=== PATIENT | female | born 1995 | race Caucasian/White ===

== ENCOUNTER 2019-11-23 03:13 | Emergency (ER) | payer BC ==
[2019-11-23] MEDS ORDERED: Amoxicillin 500 MG Cap PO ONE (03:21)
[2019-11-23] MEDS ORDERED: Acetaminophen 325 MG Tab PO ONE (03:21)
[2019-11-23 03:22] VITALS: BP 119/62; PULSE 91
--- NOTE | 2019-11-23 03:26 | EDM.PDOC ---
ED HPI GENERAL MEDICAL PROBLEM - General Chief Complaint: ENT Problem Stated Complaint: EAR INFECTION Time Seen by Provider: 11/23/19 03:20 Source of Information: Reports: Patient History Limitations: Reports: No Limitations - History of Present Illness INITIAL COMMENTS - FREE TEXT/NARRATIVE: This 24 yo female patient reports to the ED with bilateral ear pain (left worse than right) along with a 1 month history of a "cold". The patient reports she woke up with intense ear pain (rates pain at a 10/10). The patient reports she is currently 7 weeks . Onset: Today Duration: Constant Location: Reports: Head Quality: Reports: Other Severity: Severe Improves with: Reports: None Worsens with: Reports: None Context: Reports: Other Associated Symptoms: Reports: No Other Symptoms Left Ear Pain Score (Numeric/FACES): 7 - Related Data Allergies Allergy/AdvReac Type Severity Reaction Status Date / Time cats Allergy Sneezing Uncoded 07/20/18 08:44 Home Meds: Home Meds Pnv No.95/Ferrous Fum/Folic AC [ Tablet] 1 each PO DAILY 02/05/16 [ History] FLUoxetine [PROzac] 20 mg PO DAILY 11/23/19 [History] Past Medical History HEENT History: Reports: Allergic Rhinitis, Impaired Vision Cardiovascular History: Reports: None Respiratory History: Reports: None Gastrointestinal History: Reports: None Genitourinary History: Reports: None 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: Musculoskeletal History: Reports: Fracture Neurological History: Reports: None Psychiatric History: Reports: Anxiety, Depression Other Psychiatric History: agoraphobia with panic attacks Endocrine/Metabolic History: Reports: None Hematologic History: Reports: None Immunologic History: Reports: None Oncologic (Cancer) History: Reports: None Dermatologic History: Reports: None - Infectious Disease History Infectious Disease History: Reports: None - Past Surgical History Head Surgeries/Procedures: Reports: None Musculoskeletal Surgical History: Reports: None Social & Family History - Family History Family Medical History: Noncontributory - Caffeine Use Caffeine Use: Reports: Soda - Living Situation & Occupation Living situation: Reports: with Significant Other, with Family ED ROS ENT - Review of Systems Review Of Systems: Comprehensive ROS is negative, except as noted in HPI. ED EXAM, ENT - Physical Exam Exam: See Below Exam Limited By: No Limitations General Appearance: Alert, WD/WN, Moderate Distress Eye Exam: Bilateral Eye: EOMI, Normal Inspection, PERRL Ears: Normal External Exam, Hearing Grossly Normal, TM Erythema (left), TM Fluid (left) Nose: Normal Inspection, Normal Mucousa, No Blood Mouth/Throat: Normal Inspection, Normal Gums, Normal Lips, Normal Oropharynx, Normal Teeth Head: Atraumatic, Normocephalic Neck: Normal Inspection, Supple, Non-Tender, Full Range of Motion Respiratory/Chest: No Respiratory Distress, Lungs Clear, Normal Breath Sounds, No Accessory Muscle Use, Chest Non-Tender Cardiovascular: Normal Peripheral Pulses, Regular Rate, Rhythm, No Edema, No Gallop, No JVD, No Murmur, No Rub GI/Abdominal: Normal Bowel Sounds, Soft, Non-Tender, No Organomegaly, No Distention, No Abnormal Bruit, No Mass (Female) Exam: Deferred Rectal (Female) Exam: Deferred Back: Normal Inspection, Full Range of Motion Extremities: Normal Inspection, Normal Range of Motion, Non-Tender, No Pedal Edema, Normal Capillary Refill Neurological: Alert, Oriented, CN II-XII Intact, Normal Cognition, Normal Gait, Normal Reflexes, No Motor/Sensory Deficits Psychiatric: Normal Affect, Normal Mood Skin: Warm, Dry, Intact, Normal Color, No Rash Lymphatic: No Adenopathy Course - Vital Signs Last Recorded V/S: Last Vital Signs Temp 35.7 C 11/23/19 03:21 Pulse 91 11/23/19 03:21 Resp 16 11/23/19 03:21 BP 119/62 11/23/19 03:21 Pulse Ox 100 11/23/19 03:21 - Orders/Labs/Meds Meds: Medications Discontinued Medications Generic Name Dose Route Start Last Admin Trade Name Naida PRN Reason Stop Dose Admin Acetaminophen 650 mg 11/23/19 03:21 Tylenol PO 11/23/19 03:22 NOW ONE Amoxicillin 1,000 mg 11/23/19 03:21 Amoxil PO 11/23/19 03:22 ONETIME ONE Departure - Departure Time of Disposition: 03:24 Disposition: Home, Self-Care 01 Condition: Fair Clinical Impression: Otitis media Qualifiers: Otitis media type: serous Chronicity: acute Laterality: left Recurrence: non- recurrent Qualified Code(s): H65.02 - Acute serous otitis media, left ear - Discharge Information *PRESCRIPTION DRUG MONITORING PROGRAM REVIEWED*: Not Applicable *COPY OF PRESCRIPTION DRUG MONITORING REPORT IN PATIENT PRABHU: Not Applicable Instructions: Otitis Media, Adult, [id number] Forms: ED Department Discharge Care Plan Goals: The patient was advised of the examination results during the visit. The patient was given an oral dose of Tylenol and Amoxicillin while in the ED and a script for Amoxicillin (1000 mg) to be given 1 by mouth 3 times per day for 7 days. The patient may take Tylenol as directed for temporary symptom relief. If the patient has any additional symptoms or concerns, the patient should visit her primary care facility or return to the emergency department. Sepsis Event Note - Evaluation Sepsis Screening Result: No Definite Risk - Focused Exam Vital Signs: Vital Signs Temp Pulse Resp BP Pulse Ox 11/23/19 03:21 35.7 C 91 16 119/62 100 Date Exam was Performed: 11/23/19 Time Exam was Performed: 03:26
== END 2019-11-23 03:30 | disposition home or self-care (01) ==
LOC: DL.ED 03:13
DX: H65.02 Acute serous otitis media, left ear (principal); F32.9 Major depressive disorder, single episode, unspecified; F41.9 Anxiety disorder, unspecified; Z91.048 Other nonmedicinal substance allergy status; Z79.899 Other long term (current) drug therapy
CPT/HCPCS: 99282; A9270

== ENCOUNTER 2019-12-31 09:13 | Emergency (ER) | payer BC ==
[2019-12-31 09:26] VITALS: BP 123/70; PULSE 87
[2019-12-31] MEDS ORDERED: Ondansetron 4 MG/2 ML SDV IVPUSH ONE (09:39)
[2019-12-31] MEDS ORDERED: Sodium Chloride 0.9% 1,000 ML IV ONE (09:39)
--- NOTE | 2019-12-31 11:10 | EDM.PDOC ---
Scribed by Jennifer Hagen 12/31/19 1043 for Brittney Paige NP ED HPI GENERAL MEDICAL PROBLEM - General Chief Complaint: Abdominal Pain Stated Complaint: POSSIBLE MISCARRIAGE Time Seen by Provider: 12/31/19 10:00 Source of Information: Reports: Patient, RN, RN Notes Reviewed History Limitations: Reports: No Limitations - History of Present Illness INITIAL COMMENTS - FREE TEXT/NARRATIVE: A 24-year-old female who presents to the ER with complaints of nausea and diarrhea x9 hours. She reports eating pizza prior to bedtime. Reports generalized abdominal ache. No vomiting episodes. Has had 4 watery bowel movements with no blood. She admits to having a headache, but states this is normal. She is 13 weeks and has been followed by Family Medicine Physician. She denies any fevers, chills, shortness of breath, chest pain, dizziness, lightheadedness at this time. Onset: Today Location: Reports: Abdomen Quality: Reports: Ache Severity: Mild Improves with: Reports: None Worsens with: Reports: None Associated Symptoms: Reports: No Other Symptoms Abdomen Pain Score (Numeric/FACES): 10 - Related Data Allergies Allergy/AdvReac Type Severity Reaction Status Date / Time cats Allergy Sneezing Uncoded 12/31/19 09:27 Home Meds: Home Meds Pnv No.95/Ferrous Fum/Folic AC [ Tablet] 1 each PO DAILY 02/05/16 [ History] FLUoxetine [PROzac] 20 mg PO DAILY 11/23/19 [History] Past Medical History HEENT History: Reports: Allergic Rhinitis, Impaired Vision Cardiovascular History: Reports: None Respiratory History: Reports: None Gastrointestinal History: Reports: None Genitourinary History: Reports: None 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: Musculoskeletal History: Reports: Fracture Other Musculoskeletal History: LEFT index finger and RIGHT ankle Neurological History: Reports: None Psychiatric History: Reports: Anxiety, Depression Other Psychiatric History: agoraphobia with panic attacks Endocrine/Metabolic History: Reports: None Hematologic History: Reports: None Immunologic History: Reports: None Oncologic (Cancer) History: Reports: None Dermatologic History: Reports: None - Infectious Disease History Infectious Disease History: Reports: None - Past Surgical History Head Surgeries/Procedures: Reports: None Cardiovascular Surgical History: Reports: None Musculoskeletal Surgical History: Reports: None Social & Family History - Family History Family Medical History: Noncontributory - Tobacco Use Smoking Status *Q: Former Smoker Years of Tobacco use: 10 Packs/Tins Daily: 0.5 Used Tobacco, but Quit: Yes Month/Year Tobacco Last Used: 09/2019 Second Hand Smoke Exposure: No - Caffeine Use Caffeine Use: Reports: Coffee - Recreational Drug Use Recreational Drug Use: No - Living Situation & Occupation Living situation: Reports: with Significant Other, with Family ED ROS GENERAL - Review of Systems Review Of Systems: Comprehensive ROS is negative, except as noted in HPI. ED EXAM, GI/ABD - Physical Exam Exam: See Below Exam Limited By: No Limitations General Appearance: Alert, WD/WN, No Apparent Distress Head: Atraumatic, Normocephalic Neck: Normal Inspection, Supple, Non-Tender, Full Range of Motion Respiratory/Chest: No Respiratory Distress, Lungs Clear, Normal Breath Sounds, No Accessory Muscle Use, Chest Non-Tender Cardiovascular: Normal Peripheral Pulses, Regular Rate, Rhythm, No Edema, No Gallop, No JVD, No Murmur, No Rub GI/Abdominal Exam: Normal Bowel Sounds, Soft, Non-Tender, No Organomegaly, No Distention, No Abnormal Bruit, No Mass, Pelvis Stable (Female) Exam: Deferred Rectal (Female) Exam: Deferred Back Exam: Normal Inspection, Full Range of Motion, NT Extremities: Normal Inspection, Normal Range of Motion, Non-Tender, Normal Capillary Refill, No Pedal Edema Neurological: Alert, Oriented, CN II-XII Intact, Normal Cognition, Normal Gait, Normal Reflexes, No Motor/Sensory Deficits Psychiatric: Normal Affect, Normal Mood Skin Exam: Warm, Dry, Intact, Normal Color, No Rash Lymphatic: No Adenopathy Course - Vital Signs Last Recorded V/S: Last Vital Signs Temp 97.6 F 12/31/19 09:20 Pulse 87 12/31/19 09:20 Resp 18 12/31/19 09:20 BP 123/70 12/31/19 09:20 Pulse Ox 99 12/31/19 09:20 - Orders/Labs/Meds Orders: Active Orders 24 hr Category Date Time Status CULTURE URINE [RM] Stat Lab 12/31/19 09:15 Received Labs: Laboratory Tests 12/31/19 12/31/19 Range/Units 09:15 09:15 Urine Color Yellow (YELLOW) Urine Appearance Slightly cloudy (CLEAR) Urine pH 5.5 (5.0-9.0) Ur Specific [place] 1.025 (1.005-1.030) Urine Protein Negative (NEGATIVE) Urine Glucose (UA) Negative (NEGATIVE) Urine Ketones Negative (NEGATIVE) Urine Occult Blood Trace-intact H (NEGATIVE) Urine Nitrite Negative (NEGATIVE) Urine Bilirubin Negative (NEGATIVE) Urine Urobilinogen 0.2 (0.2-1.0) mg/dL Ur Leukocyte Esterase Trace H (NEGATIVE) Urine RBC 0-5 /HPF Urine WBC 0-5 (0-5/HPF) /HPF Ur Epithelial Cells Many H (NOT SEEN) /HPF Urine Bacteria Many H (0-FEW/HPF) /HPF Urine HCG, Qual Positive Meds: Medications Discontinued Medications Generic Name Dose Route Start Last Admin Trade Name Freq PRN Reason Stop Dose Admin Sodium Chloride 1,000 mls @ 1,000 mls/hr 12/31/19 09:39 12/31/19 10:03 Normal Saline IV 12/31/19 10:38 1,000 mls/hr .BOLUS ONE Administration Ondansetron HCl 4 mg 12/31/19 09:39 12/31/19 10:04 Zofran IVPUSH 12/31/19 09:40 4 mg ONETIME ONE Administration - Re-Assessments/Exams Free Text/Narrative Re-Assessment/Exam: 12/31/19 10:40 Patient received IV fluids and Zofran administered with relief. Encouraged patient to start with clear liquids and advanced food as tolerated. Strongly recommended pushing fluids and resting. Follow up with PCP in the clinic. Departure - Departure Time of Disposition: 11:10 Disposition: Home, Self-Care 01 Condition: Good Clinical Impression: Gastroenteritis Qualifiers: Weeks of gestation: 13 weeks Qualified Code(s): Z3A.13 - 13 weeks gestation of - Discharge Information Instructions: Viral Gastroenteritis, Adult, [id number] Forms: ED Department Discharge Additional Instructions: Follow instructions on ADS. Sepsis Event Note - Evaluation Sepsis Screening Result: No Definite Risk - Focused Exam Vital Signs: Vital Signs Temp Pulse Resp BP Pulse Ox 12/31/19 09:20 97.6 F 87 18 123/70 99 Date Exam was Performed: 12/31/19 Time Exam was Performed: 11:09 - My Orders Last 24 Hours: My Active Orders 12/31/19 09:15 CULTURE URINE [RM] Stat - Assessment/Plan Last 24 Hours: My Active Orders 12/31/19 09:15 CULTURE URINE [RM] Stat I have read and agree with the documentation that has been completed regarding this visit. By signing this record, I attest that the documentation was completed in my physical presence and is an accurate record of the encounter.
== END 2019-12-31 11:25 | disposition home or self-care (01) ==
LOC: DL.ED 09:13
DX: O99.611 Diseases of the digestive system complicating pregnancy, first trimester (principal); K52.9 Noninfective gastroenteritis and colitis, unspecified; O99.341 Other mental disorders complicating pregnancy, first trimester; F32.9 Major depressive disorder, single episode, unspecified; F41.9 Anxiety disorder, unspecified; Z91.048 Other nonmedicinal substance allergy status; Z79.899 Other long term (current) drug therapy; Z87.891 Personal history of nicotine dependence; Z3A.13 13 weeks gestation of pregnancy
CPT/HCPCS: 81001; 81025; 87086; 96361; 96374; 99284; J2405; J7030

== ENCOUNTER 2020-07-01 00:14 | Inpatient (IN) | payer BC ==
[2020-07-01] MEDS ORDERED: Lactated Ringers 1,000 ML IV ONE (01:25)
[2020-07-01] MEDS ORDERED: Misoprostol 400 MCG (4 X 100 MCG TAB) RECTAL PRN (01:25)
[2020-07-01] MEDS ORDERED: Sodium Chloride 0.9% 10 ML Syringe FLUSH PRN (01:25)
[2020-07-01] MEDS ORDERED: Lidocaine 1% 30 ML SDV INJECT PRN (01:25)
[2020-07-01] MEDS ORDERED: Methylergonovine 0.2 MG/1 ML Amp IM PRN (01:25)
[2020-07-01] MEDS ORDERED: Carboprost Tromethamine 250 MCG/1 ML Amp IM PRN (01:25)
[2020-07-01] MEDS ORDERED: Tranexamic Acid 1,000 MG in Sodium Chloride 0.9% 100 ML IV PRN (01:25)
[2020-07-01] MEDS ORDERED: Acetaminophen 325 MG Tab PO PRN (01:25)
[2020-07-01] MEDS ORDERED: Oxytocin/Normal Saline 30 UNIT/500 ML BAG IV SCH (01:30)
[2020-07-01] MEDS ORDERED: Misoprostol 50 MCG (1/2 of 100 MCG) Tab VAG PRN (01:34)
--- NOTE | 2020-07-01 09:25 | PCM.LDHP ---
L&D History of Present Illness - General Date of Service: 07/01/20 (admit H&P) Admit Problem/Dx: Patient Status Order with Admit Dx/Problem 07/01/20 01:25 Patient Status [ADT] Routine Admission Diagnosis/Problem Admission Diagnosis/Problem Term 07/01/20 09:20 Admission for induction, 39w3d with hx of macrosomia Lorri is a delightful 25yo WF @ 39+ weeks gestation who presents as scheduled for induction today due to hx of macrosomia as she is > 39 weeks and has a ripe cervix. She is known GBS positive. Source of Information: Patient, Family, Old Records, Provider History Limitations: Reports: No Limitations - History of Present Illness Introduction:: 25yo @ 39w1d Timing/Duration: Reports: other (not in labor on admit) Location, : Reports: Uterus - Related Data Allergies/Adverse Reactions: Allergies Allergy/AdvReac Type Severity Reaction Status Date / Time cats Allergy Mild Sneezing Uncoded 07/01/20 10:08 Home Medications: Home Meds Pnv No.95/Ferrous Fum/Folic AC [ Tablet] 1 each PO DAILY 02/05/16 [History] FLUoxetine [PROzac] 20 mg PO DAILY 11/23/19 [History] Past Medical History HEENT History: Reports: Allergic Rhinitis, Impaired Vision Cardiovascular History: Reports: None Respiratory History: Reports: None Gastrointestinal History: Reports: None Genitourinary History: Reports: None 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: Other OB/BYN History: third ; hx of macrosomia Musculoskeletal History: Reports: Fracture Other Musculoskeletal History: LEFT index finger and RIGHT ankle Neurological History: Reports: None Psychiatric History: Reports: Anxiety, Depression Other Psychiatric History: agoraphobia with panic attacks Endocrine/Metabolic History: Reports: None Hematologic History: Reports: None Immunologic History: Reports: None Oncologic (Cancer) History: Reports: None Dermatologic History: Reports: None - Infectious Disease History Infectious Disease History: Reports: None - Past Surgical History Head Surgeries/Procedures: Reports: None Cardiovascular Surgical History: Reports: None Musculoskeletal Surgical History: Reports: None Social & Family History - Family History Family Medical History: Noncontributory - Caffeine Use Caffeine Use: Reports: None - Living Situation & Occupation Living situation: Reports: , with Family (Randi basilio Tee have 2 sons together and are expecting a girl this time.) H&P Review of Systems - Review of Systems: Review Of Systems: See Below General: Reports: No Symptoms HEENT: Reports: No Symptoms Pulmonary: Reports: No Symptoms Cardiovascular: Reports: No Symptoms Gastrointestinal: Reports: No Symptoms Genitourinary: Reports: No Symptoms Musculoskeletal: Reports: No Symptoms Skin: Reports: No Symptoms Psychiatric: Reports: No Symptoms Neurological: Reports: No Symptoms Hematologic/Lymphatic: Reports: No Symptoms Immunologic: Reports: No Symptoms L&D Exam - Exam Exam: See Below - OB Specific Contraction Intensity: none on admit Movement: Active Heart Tones: Present Heart Tones per Min: 140 (NST reactive on admit, Cat 1) Heart Rate (FHR) Variability: Moderate (6-25 bmp) Presentation: Vertex Estimated Weight: 8 +/- 1/2 - Gallo Score Gallo Score Cervix Position: Midposition Gallo Score Consistency: Soft Gallo Score Effacement: >80% Gallo Score Dilation: 1-2 cm Gallo Score Infant's Station: -2 Gallo Score Total: 8 - Exam General: Alert, Oriented HEENT: Conjunctiva Clear, EOMI, Hearing Intact, Mucosa Moist & Backus, Nares Patent, Pupils Equal, Pupils Reactive Neck: Supple, Trachea Midline Lungs: Clear to Auscultation, Normal Respiratory Effort Cardiovascular: Regular Rate, Regular Rhythm GI/Abdominal Exam: Normal Bowel Sounds, Soft, Non-Tender, Pelvis Stable Rectal Exam: Deferred Genitourinary: Normal external exam, Cervical dilitation, Enlarged uterus Back Exam: Normal Inspection Extremities: Normal Inspection, Normal Range of Motion, Non-Tender, No Pedal Edema, Normal Capillary Refill Skin: Warm, Dry, Intact Neurological: Strength Equal Bilateral, Normal Gait, Normal Speech, Normal Tone, Sensation Intact Psychiatric: Alert, Normal Affect, Normal Mood - Patient Data Lab Results Last 24 hrs: Laboratory Results - last 24 hr 07/01/20 Range/Units 08:30 COVID-19 ([facility]) Negative (NEGATIVE) Result Diagrams: 07/01/20 09:38 - Problem List (1) Group B Streptococcus carrier, +RV culture, currently SNOMED Code(s): 3734245232117, 385246597, 9960079169088 ICD Code: O99.820 - STREPTOCOCCUS B CARRIER STATE COMPLICATING Status: Acute Current Visit: Yes (2) Blood type O+ SNOMED Code(s): 031192172 ICD Code: Z67.40 - TYPE O BLOOD, RH POSITIVE Status: Acute Current Visit: No (3) History of depression SNOMED Code(s): 643184602 ICD Code: Z86.59 - PERSONAL HISTORY OF OTHER MENTAL AND BEHAVIORAL DISORDERS Status: Acute Current Visit: No (4) Hx of macrosomia, infant of prior , currently SNOMED Code(s): 66868940661101, 69009152753743 ICD Code: O09.299 - SUPRVSN OF PREG W POOR REPRODCTV OR OBSTET HISTORY, UNSP TRI Status: Acute Current Visit: No (5) Term SNOMED Code(s): 79879018 ICD Code: Z34.80 - ENCOUNTER FOR SUPRVSN OF NORMAL , UNSP TRIMESTER Status: Acute Current Visit: No (6) Anxiety SNOMED Code(s): 34705330 ICD Code: F41.9 - ANXIETY DISORDER, UNSPECIFIED Status: Acute Current Vi sit: Yes (7) Rubella immune SNOMED Code(s): 472910255 ICD Code: Z78.9 - OTHER SPECIFIED HEALTH STATUS Status: Acute Current Visit: No Problem List Initiated/Reviewed/Updated: Yes Orders Last 24hrs: Active Orders 24 hr Category Date Time Status Patient Status [ADT] Routine ADT 07/01/20 01:25 Active Communication Order [RC] ASDIRECTED Care 07/01/20 01:25 Active Communication Order [RC] ASDIRECTED Care 07/01/20 01:34 Active Communication Order [RC] ASDIRECTED Care 07/01/20 01:34 Active Communication Order [RC] ASDIRECTED Care 07/01/20 01:34 Active Communication Order [RC] ASDIRECTED Care 07/01/20 01:34 Active Communication Order [RC] ASDIRECTED Care 07/01/20 01:34 Active Non Stress Test [RC] PER UNIT ROUTINE Care 07/01/20 01:27 Active Notify Provider Vital Signs OB [RC] ASDIRECTED Care 07/01/20 01:25 Active Notify Provider [RC] PRN Care 07/01/20 01:25 Active Notify Provider [RC] PRN Care 07/01/20 01:34 Active Notify Provider [RC] PRN Care 07/01/20 01:34 Active Notify Provider [RC] STAT Care 07/01/20 01:34 Active Pump Management, Intrathecal [RC] ASDIRECTED Care 07/01/20 08:00 Active Up ad Mala [RC] ASDIRECTED Care 07/01/20 01:25 Active Vaginal Exam [RC] PRN Care 07/01/20 01:34 Active Vital Signs [RC] PER UNIT ROUTINE Care 07/01/20 01:25 Active CBC W/O DIFF,HEMOGRAM [HEME] Routine Lab 07/01/20 01:25 Ordered Acetaminophen [Tylenol] Med 07/01/20 01:25 Active 650 mg PO Q4H PRN Carboprost Tromethamine [Hemabate DS] Med 07/01/20 01:25 Active 250 mcg IM ASDIRECTED PRN FLUoxetine [PROzac] Med 07/02/20 09:00 Active 20 mg PO DAILY Lactated Ringers [Ringers, Lactated] 1,000 ml Med 07/01/20 01:30 Active IV ASDIRECTED Lidocaine 1% [Xylocaine-MPF 1%] Med 07/01/20 01:25 Active 30 ml INJECT ASDIRECTED PRN Methylergonovine [Methergine] Med 07/01/20 01:25 Active 0.2 mg IM ASDIRECTED PRN Ondansetron [Zofran] Med 07/01/20 01:25 Active 4 mg IVPUSH Q4H PRN Oxytocin/Normal Saline [Pitocin in NS 30 UNIT/500 ML] Med 07/01/20 01:30 Active 30 unit in 500 ml IV TITRATE Oxytocin/Normal Saline [Pitocin in NS 30 UNIT/500 ML] Med 07/01/20 01:45 Active 30 unit in 500 ml IV TITRATE Penicillin G Potassium [Pfizerpen] 2.5 millunits Med 07/01/20 13:00 Pending Sodium Chloride 0.9% [Normal Saline] 100 ml IV Q4H Penicillin G Potassium [Pfizerpen] 5 millunits Med 07/01/20 09:00 Pending Sodium Chloride 0.9% [Normal Saline] 100 ml IV ONETIME Sodium Chloride 0.9% [Saline Flush] Med 07/01/20 01:25 Active 10 ml FLUSH ASDIRECTED PRN Tranexamic Acid [Cyklokapron] 1,000 mg Med 07/01/20 01:25 Active Sodium Chloride 0.9% [Normal Saline] 100 ml IV ONETIME miSOPROStoL [Cytotec] Med 07/01/20 01:34 Active 50 mcg VAG Q4H PRN miSOPROStoL [Cytotec] Med 07/01/20 01:25 Active 800 mcg RECTAL ASDIRECTED PRN Peripheral IV Insertion Adult [OM.PC] Urgent Oth 07/01/20 01:34 Ordered Saline Lock Insert [OM.PC] Routine Oth 07/01/20 01:25 Ordered Resuscitation Status Routine Resus Stat 07/01/20 01:25 Ordered Medication Orders Acetaminophen (Tylenol) 650 mg PO Q4H PRN PRN Reason: Pain (Mild 1-3) and fever Carboprost Tromethamine (Hemabate Ds) 250 mcg IM ASDIRECTED PRN PRN Reason: HEMORRHAGE Fluoxetine HCl (Prozac) 20 mg PO DAILY MAIKEL Tranexamic Acid 1,000 mg/ (Sodium Chloride) 110 mls @ 660 mls/hr IV ONETIME PRN PRN Reason: Bleeding Oxytocin/Sodium Chloride (Pitocin In Ns 30 Unit/500 Ml) 30 unit in 500 mls @ 2 mls/hr IV TITRATE MAIKEL; Protocol Lactated Ringer's (Ringers, Lactated) 1,000 mls @ 125 mls/hr IV ASDIRECTED MAIKEL Oxytocin/Sodium Chloride (Pitocin In Ns 30 Unit/500 Ml) 30 unit in 500 mls @ 2 mls/hr IV TITRATE MAIKEL; Protocol Penicillin G Potassium 5 (millunits/ Sodium Chloride) 100 mls @ 200 mls/hr IV ONETIME ONE Stop: 07/01/20 09:29 Penicillin G Potassium 2.5 (millunits/ Sodium Chloride) 100 mls @ 200 mls/hr IV Q4H MAIKEL Lidocaine HCl (Xylocaine-Mpf 1%) 30 ml INJECT ASDIRECTED PRN PRN Reason: Perineal Repair Methylergonovine Maleate (Methergine) 0.2 mg IM ASDIRECTED PRN PRN Reason: Hemorrhage Misoprostol (Cytotec) 800 mcg RECTAL ASDIRECTED PRN PRN Reason: Hemorrhage Misoprostol (Cytotec) 50 mcg VAG Q4H PRN PRN Reason: cervical ripening Ondansetron HCl (Zofran) 4 mg IVPUSH Q4H PRN PRN Reason: Nausea/Vomiting Sodium Chloride (Saline Flush) 10 ml FLUSH ASDIRECTED PRN PRN Reason: Keep Vein Open Assessment/Plan Comment:: Assessment: 25yo WF @ 39+ with hx of macrosomia scheduled for induction today GBS + Anxiety and Depression controlled on fluoxetine 20mg po qd Blood type O+ Rubella immune Plan: COVID testing negative. CBC pending. planning Cytotec 50mcg PCN prophylaxis for GBS consider repeat Cytotec, AROM when indicated, possible pitocin, intrathecal when appropriate. anticipate vaginal delivery today. All questions answered. see [facility] notes and episode for further details. hmb
[2020-07-01] MEDS ORDERED: Penicillin G Potassium 5 MILLUNITS in Sodium Chloride 0.9% 100 ML IV ONE (10:00)
[2020-07-01] MEDS: Lactated Ringers 1,000 ML IV SCH ×4 (10:02→23:01)
[2020-07-01] MEDS: Penicillin G Potassium 2.5 MILLUNITS in Sodium Chloride 0.9% 100 ML IV SCH ×3 (13:50→21:54)
[2020-07-01] MEDS: Oxytocin/Normal Saline 30 UNIT/500 ML BAG IV SCH (13:51)
[2020-07-01] MEDS: Ondansetron 4 MG/2 ML SDV IVPUSH PRN ×2 (18:00→22:35)
[2020-07-01] MEDS ORDERED: EPINEPHrine 1 MG/1 ML Amp ONE ×2 (18:20→22:47)
[2020-07-01] MEDS ORDERED: fentaNYL 100 MCG/2 ML SDV ONE ×2 (18:20→22:46)
--- NOTE | 2020-07-01 18:48 | PCM.PRNOTE ---
- Free Text/Narrative Note: Requested to provide analgesia to full term patient in severe pain. Upon entering the room, patient is sitting on edge of bed complaining of severe abdominal/pelvic pain and discomfort. Procedure was discussed with patient including adverse outcomes and expectations. Pt consented to analgesia, SAB/IT. Pt placed into a proper sitting position. Landmarks for SAB/IT were identified and marked. Hands were washed and appropriate PPE was applied. Back was prepped with betadine x3. A sterile, transparent, fenestrated drape was applied. Excess betadine was removed. Using 3 mL of a 1% lidocaine solution, a skin wheel was placed at the L2/L3 interspace. A 24 ga (4 inch) Pencan spinal needle was inserted until positive for CSF. Negative for heme or paresthesias. Injected fentanyl 30 mcg, sufentanil 25 mcg, and 7.5 mg of a 0.75% bupivacaine solution with an epi wash. Pt was placed left lateral position for approximately 20 minutes. There were zero complications or adverse outcomes. Will continue to monitor. Procedure Date & Time: 07/01/20 [id number]
--- NOTE | 2020-07-01 23:21 | PCM.PRNOTE ---
- Free Text/Narrative Note: Requested to provide analgesia to full term patient in severe pain. Upon entering the room, patient is sitting on edge of bed complaining of severe abdominal/pelvic pain and discomfort. Procedure was discussed with patient including adverse outcomes and expectations. Pt consented to analgesia, SAB/IT. Pt placed into a proper sitting position. Landmarks for SAB/IT were identified and marked. Hands were washed and appropriate PPE was applied. Back was prepped with betadine x3. A sterile, transparent, fenestrated drape was applied. Excess betadine was removed. Using 3 mL of a 1% lidocaine solution, a skin wheel was placed at the L2/L3 interspace. A 24 ga (4 inch) Pencan spinal needle was inserted until positive for CSF. Negative for heme or paresthesias. C/O itching with previous administration. Injected fentanyl 15 mcg, sufentanil 25 mcg, and 7.5 mg of a 0.75% bupivacaine solution with an epi wash. Pt was placed left lateral position for approximately 20 minutes. There were zero complications or adverse outcomes. Will continue to monitor. Procedure Date & Time:
[2020-07-02] MEDS ORDERED: fentaNYL 100 MCG/2 ML SDV ITHECAL ONE ×2 (00:01)
[2020-07-02] MEDS ORDERED: EPINEPHrine 1 MG/1 ML Amp ONE ×2 (00:01)
[2020-07-02] MEDS ORDERED: Zolpidem 5 MG Tab PO PRN (00:27)
[2020-07-02] MEDS ORDERED: Simethicone 80 MG Tab.Chew PO PRN (00:27)
[2020-07-02] MEDS ORDERED: Benzocaine/Menthol 20%-0.5% Spray 56 GM Canister TOP PRN (00:27)
--- NOTE | 2020-07-02 00:43 | PCM.DEL ---
L & D Note - General Info Date of Service: 07/02/20 (time of delivery 0014) Mother's Due Date: 07/05/20 (39w4d) - Delivery Note Labor: Augmented by ARM, Augmented by Oxytocin Cervical Ripening Method: Misoprostil Delivery Outcome: Livebirth Infant Delivery Method: Spontaneous Vaginal Delivery-Single Presentation: Right Occiput Anterior (ASTRID) Nuchal Cord: None Prep: Povidone-Iodine (Betadine Anesthesia Type: Intrathecal Amniotic Fluid Description: Clear Episiotomy Type: None Laceration: None Placenta: Intact, Expressed Cord: 3 Vessels Estimated Blood Loss: 250 Resuscitation Needed: No Mears: Suctioned, Bulb Syringe, Stimulated, Warmed, [place] Used Provider: Vashti Coombs Score 1 min: 8 Score 5 min: 9 Second Stage Interventions: Reports: Pushing Effectively, Pushing, Feet in Foot Rests, Pushing, McRobert's Position Delivery Comments (Free Text/Narrative):: 25yo G3 now P3 female who presented for induction today due to hx of macrosomia. Cytotec 50mcg placed X 1. PCN X 2 for GBS+ status. AROM carried out with return of copious amounts of clear fluid. pitocin infusion led to active labor pattern. intrathecal placed X 2. she progressed onto complete dilation shortly after second intrathecal and pushed effectively to with one contraction, then delivered the head with the next contraction, followed by the body with assistance from me in Ezio position for the anterior shoulder, with baby girl delivered to mother's chest. 9lb 5oz with APGARs 8 & 9, born @ 0014 on 07-02-2022. 3 vessel cord double clamped by me, cut by father Randal, and cord blood sample obtained. placenta delivered intact. perineum intact EBL <250ml mom and baby doing well. skin to skin for bonding and nursing. family happy with care routine and nursery orders and cares. [facility] - General Info Date of Service: 07/02/20 (time of delivery 13) - Patient Data Vitals - Most Recent: Last Vital Signs Temp 98.0 F 07/01/20 23:07 Pulse 80 07/01/20 23:25 Resp 16 07/01/20 23:25 BP 119/68 07/01/20 23:25 Pulse Ox 95 07/01/20 19:45 Weight - Most Recent: 230 lb Lab Results Last 24 Hours: Laboratory Results - last 24 hr 07/01/20 07/01/20 Range/Units 08:30 09:38 WBC 12.1 H (5.0-10.0) 10^3/uL RBC 4.28 (4.2-5.4) 10^6/uL Hgb 11.6 L D (12.0-16.0) g/dL Hct 34.8 L (37.0-47.0) % MCV 81.3 D (80-100) fL MCH 27.1 (27.0-34.0) pg MCHC 33.3 (33.0-35.0) g/dL Plt Count 198 (150-450) 10^3/uL COVID-19 ([facility]) Negative (NEGATIVE) Med Orders - Current: Current Medications Acetaminophen (Tylenol) 650 mg PO Q4H PRN PRN Reason: Pain (Mild 1-3) and fever Carboprost Tromethamine (Hemabate Ds) 250 mcg IM ASDIRECTED PRN PRN Reason: HEMORRHAGE Fluoxetine HCl (Prozac) 20 mg PO DAILY MAIKEL Tranexamic Acid 1,000 mg/ (Sodium Chloride) 110 mls @ 660 mls/hr IV ONETIME PRN PRN Reason: Bleeding Oxytocin/Sodium Chloride (Pitocin In Ns 30 Unit/500 Ml) 30 unit in 500 mls @ 2 mls/hr IV TITRATE MAIKEL; Protocol Lactated Ringer's (Ringers, Lactated) 1,000 mls @ 125 mls/hr IV ASDIRECTED MAIKEL Last Admin: 07/01/20 23:01 Dose: 125 mls/hr Documented by: Oxytocin/Sodium Chloride (Pitocin In Ns 30 Unit/500 Ml) 30 unit in 500 mls @ 2 mls/hr IV TITRATE MAIKEL; Protocol Last Titration: 07/01/20 21:29 Dose: 16 munits/min, 16 mls/hr Documented by: Penicillin G Potassium 2.5 (millunits/ Sodium Chloride) 100 mls @ 200 mls/hr IV Q4H MAIKEL Last Admin: 07/01/20 21:54 Dose: 200 mls/hr Documented by: Lidocaine HCl (Xylocaine-Mpf 1%) 30 ml INJECT ASDIRECTED PRN PRN Reason: Perineal Repair Methylergonovine Maleate (Methergine) 0.2 mg IM ASDIRECTED PRN PRN Reason: Hemorrhage Misoprostol (Cytotec) 800 mcg RECTAL ASDIRECTED PRN PRN Reason: Hemorrhage Misoprostol (Cytotec) 50 mcg VAG Q4H PRN PRN Reason: cervical ripening Last Admin: 07/01/20 09:45 Dose: 50 mcg Documented by: Ondansetron HCl (Zofran) 4 mg IVPUSH Q4H PRN PRN Reason: Nausea/Vomiting Last Admin: 07/01/20 22:35 Dose: 4 mg Documented by: Sodium Chloride (Saline Flush) 10 ml FLUSH ASDIRECTED PRN PRN Reason: Keep Vein Open Discontinued Medications Epinephrine HCl (Adrenalin) Confirm Administered Dose 1 mg .ROUTE .STK-MED ONE Stop: 07/01/20 18:21 Last Admin: 07/01/20 19:39 Dose: Not Given Documented by: Epinephrine HCl (Adrenalin) Confirm Administered Dose 1 mg .ROUTE .STK-MED ONE Stop: 07/01/20 22:48 Fentanyl (Sublimaze) Confirm Administered Dose 100 mcg .ROUTE .STK-MED ONE Stop: 07/01/20 18:21 Last Admin: 07/01/20 19:39 Dose: Not Given Documented by: Fentanyl (Sublimaze) Confirm Administered Dose 100 mcg .ROUTE .STK-MED ONE Stop: 07/01/20 22:47 Lactated Ringer's (Ringers, Lactated) 1,000 mls @ 999 mls/hr IV BOLUS ONE Stop: 07/01/20 02:25 Penicillin G Potassium 5 (millunits/ Sodium Chloride) 100 mls @ 200 mls/hr IV ONETIME ONE Stop: 07/01/20 10:29 Last Admin: 07/01/20 09:59 Dose: 200 mls/hr Documented by: Sufentanil Citrate (Sufenta) Confirm Administered Dose 50 mcg .ROUTE .STK-MED ONE Stop: 07/01/20 18:21 Last Admin: 07/01/20 19:40 Dose: Not Given Documented by: Sufentanil Citrate (Sufenta) Confirm Administered Dose 50 mcg .ROUTE .STK-MED ONE Stop: 07/01/20 22:48 - Problem List & Annotations (1) Group B Streptococcus carrier, +RV culture, currently SNOMED Code(s): 2363401687089, 391862735, 5592800693548 Code(s): O99.820 - STREPTOCOCCUS B CARRIER STATE COMPLICATING Status: Acute Current Visit: Yes (2) Blood type O+ SNOMED Code(s): 569055758 Code(s): Z67.40 - TYPE O BLOOD, RH POSITIVE Status: Acute Current Visit: No (3) History of depression SNOMED Code(s): 173425417 Code(s): Z86.59 - PERSONAL HISTORY OF OTHER MENTAL AND BEHAVIORAL DISORDERS Status: Acute Current Visit: No (4) Hx of macrosomia, infant of prior , currently SNOMED Code(s): 64185421525248, 33169213736019 Code(s): O09.299 - SUPRVSN OF PREG W POOR REPRODCTV OR OBSTET HISTORY, UNSP TRI Status: Acute Current Visit: No (5) Term SNOMED Code(s): 51530612 Code(s): Z34.80 - ENCOUNTER FOR SUPRVSN OF NORMAL , UNSP TRIMESTER Status: Acute Current Visit: No (6) Anxiety SNOMED Code(s): 51888106 Code(s): F41.9 - ANXIETY DISORDER, UNSPECIFIED Status: Acute Current Visit: Yes (7) Rubella immune SNOMED Code(s): 839354750 Code(s): Z78.9 - OTHER SPECIFIED HEALTH STATUS Status: Acute Current Visit: No (8) Macrosomia affecting management of mother SNOMED Code(s): 74373964 Code(s): O36.60X0 - MATERNAL CARE FOR EXCESS GROWTH, UNSP TRIMESTER, UNSP Status: Acute Current Visit: Yes (9) Vaginal delivery SNOMED Code(s): 493547653 Code(s): O80 - ENCOUNTER FOR FULL-TERM UNCOMPLICATED DELIVERY Status: Acute Current Visit: No - Problem List Review Problem List Initiated/Reviewed/Updated: Yes - My Orders Last 24 Hours: My Active Orders 07/01/20 01:25 Patient Status [ADT] Routine Communication Order [RC] ASDIRECTED Notify Provider Vital Signs OB [RC] ASDIRECTED Notify Provider [RC] PRN Up ad Mala [RC] ASDIRECTED Vital Signs [RC] PER UNIT ROUTINE Acetaminophen [TylenoL] 650 mg PO Q4H PRN Carboprost Tromethamine [Hemabate DS] 250 mcg IM ASDIRECTED PRN Lidocaine 1% [Xylocaine-MPF 1%] 30 ml INJECT ASDIRECTED PRN Methylergonovine [Methergine] 0.2 mg IM ASDIRECTED PRN Ondansetron [Zofran] 4 mg IVPUSH Q4H PRN Sodium Chloride 0.9% [Saline Flush] 10 ml FLUSH ASDIRECTED PRN Tranexamic Acid [Cyklokapron] 1,000 mg Sodium Chloride 0.9% [Normal Saline] 100 ml IV ONETIME miSOPROStoL [Cytotec] 800 mcg RECTAL ASDIRECTED PRN Saline Lock Insert [OM.PC] Routine Resuscitation Status Routine 07/01/20 01:30 Lactated Ringers [Ringers, Lactated] 1,000 ml IV ASDIRECTED Oxytocin/Normal Saline [Pitocin in NS 30 UNIT/500 ML] 30 unit in 500 ml IV TITRATE 07/01/20 01:34 Communication Order [RC] ASDIRECTED Communication Order [RC] ASDIRECTED Notify Provider [RC] PRN Notify Provider [RC] STAT Vaginal Exam [RC] PRN miSOPROStoL [Cytotec] 50 mcg VAG Q4H PRN Peripheral IV Insertion Adult [OM.PC] Urgent 07/01/20 01:45 Oxytocin/Normal Saline [Pitocin in NS 30 UNIT/500 ML] 30 unit in 500 ml IV TITRATE 07/01/20 08:00 Pump Management, Intrathecal [RC] ASDIRECTED 07/01/20 14:00 Penicillin G Potassium [Pfizerpen] 2.5 millunits Sodium Chloride 0.9% [Normal Saline] 100 ml IV Q4H 07/01/20 23:19 Nitrous Oxide Delivery [RC] ASDIRECTED OB Discontinue Nitrous Oxide [RC] ASDIRECTED 07/02/20 00:27 Consult to Grinder Needle Tip [CONS] Routine Benzocaine/Menthol [Dermoplast Pain Relief [place]] See Dose Instructions TOP Q4H PRN Docusate Sodium [Colace] 100 mg PO BID PRN Ibuprofen [Motrin] 800 mg PO Q8H PRN Simethicone 80 mg PO Q4H PRN Zolpidem [Ambien] 5 mg PO BEDTIME PRN witch Harpal [Medi-Pads] 1 each TOP Q4HR PRN Assess Lochia [WOMSER] Per Unit Routine Assess Uterine Involution [WOMSER] Per Unit Routine Breast Pump [WOMSER] Per Unit Routine Ice Therapy [OM.PC] Per Unit Routine Perineal Care [OM.PC] Per Unit Routine Sitz Bath [OM.PC] Per Unit Routine 07/02/20 Breakfast Regular Diet [DIET] 07/02/20 09:00 FLUoxetine [PROzac] 20 mg PO DAILY Vit with Ca/FA/Iron [ Plus Iron] 1 each PO DAILY 07/02/20 Lunch Regular Diet [DIET] 07/02/20 Dinner Regular Diet [DIET] - Plan Plan:: Assessment: 25yo WF @ 39+ with hx of macrosomia scheduled for induction today GBS + Anxiety and Depression controlled on fluoxetine 20mg po qd Blood type O+ Rubella immune Plan: COVID testing negative. CBC pending. planning Cytotec 50mcg PCN prophylaxis for GBS consider repeat Cytotec, AROM when indicated, possible pitocin, intrathecal when appropriate. anticipate vaginal delivery today. All questions answered. see [facility] notes and episode for further details. [facility] Delivery: Zhane 07-02-2020 @ 0014 with uncomplicated over intact perineum with 2 cxns macrosomic female 9lb 5oz /4224g APGARs 8 & 9 see note. hmb
[2020-07-02] MEDS: Ibuprofen 800 MG Tab PO PRN ×3 (01:18→20:09)
[2020-07-02] MEDS: Oxytocin/Normal Saline 30 UNIT/500 ML BAG IV SCH (01:26)
[2020-07-02] MEDS: Penicillin G Potassium 2.5 MILLUNITS in Sodium Chloride 0.9% 100 ML IV SCH (03:33)
[2020-07-02] MEDS: FLUoxetine 10 MG Cap PO SCH (08:44)
[2020-07-02] MEDS: Prenatal Multivitamin with Calcium/Folic Acid/Iron Tab PO SCH (08:44)
[2020-07-02] MEDS: Docusate Sodium 100 MG Cap PO PRN ×2 (08:44→20:09)
[2020-07-02] MEDS: Acetaminophen/oxyCODONE 325-5 MG Tab PO PRN ×2 (10:28→23:19)
[2020-07-02] MEDS: Loratadine 10 MG Tab PO PRN (10:28)
[2020-07-03] MEDS: Acetaminophen/oxyCODONE 325-5 MG Tab PO PRN ×2 (02:50→08:28)
[2020-07-03] MEDS: Ibuprofen 800 MG Tab PO PRN (03:35)
[2020-07-03] MEDS: Loratadine 10 MG Tab PO PRN (08:26)
[2020-07-03] MEDS: FLUoxetine 10 MG Cap PO SCH (08:27)
[2020-07-03] MEDS: Docusate Sodium 100 MG Cap PO PRN (08:46)
[2020-07-03] MEDS: Prenatal Multivitamin with Calcium/Folic Acid/Iron Tab PO SCH (08:47)
[2020-07-03 09:12] VITALS: BP 119/81; PULSE 90
--- NOTE | 2020-07-03 09:27 | PCM.DCSUM1 ---
Discharge Summary - Hospital Course Free Text/Narrative:: Home today. PT has seen for pelvic discomfort and pubic bone pain. Rx percocet 5/325 #28 i q4-6 prn HPI Initial Comments: delivered macrosomic 9lb 5oz baby without complication Brief History: see admission and delivery note Diagnosis: Stroke: No - Discharge Data Discharge Date: 07/03/20 (DISCHARGE SUMMARY) Discharge Disposition: Home, Self-Care 01 Condition: Good - Referral to Home Health Primary Care Physician: Vashti Coombs MD - Discharge Diagnosis/Problem(s) (1) Group B Streptococcus carrier, +RV culture, currently SNOMED Code(s): 2005089797317, 541902538, 0009845551920 ICD Code: O99.820 - STREPTOCOCCUS B CARRIER STATE COMPLICATING Status: Acute Current Visit: Yes (2) Blood type O+ SNOMED Code(s): 329057136 ICD Code: Z67.40 - TYPE O BLOOD, RH POSITIVE Status: Acute Current Visit: No (3) History of depression SNOMED Code(s): 375169449 ICD Code: Z86.59 - PERSONAL HISTORY OF OTHER MENTAL AND BEHAVIORAL DISORDERS Status: Acute Current Visit: No (4) Hx of macrosomia, of prior , currently SNOMED Code(s): 27152045102644, 26709091382957 ICD Code: O09.299 - SUPRVSN OF PREG W POOR REPRODCTV OR OBSTET HISTORY, UNSP TRI Status: Acute Current Visit: No (5) Term SNOMED Code(s): 99952839 ICD Code: Z34.80 - ENCOUNTER FOR SUPRVSN OF NORMAL , UNSP TRIMESTER Status: Acute Current Visit: No (6) Anxiety SNOMED Code(s): 44042987 ICD Code: F41.9 - ANXIETY DISORDER, UNSPECIFIED Status: Acute Current Visit: Yes (7) Rubella immune SNOMED Code(s): 095473994 ICD Code: Z78.9 - OTHER SPECIFIED HEALTH STATUS Status: Acute Current Visit: No (8) Macrosomia affecting management of mother SNOMED Code(s): 88903117 ICD Code: O36.60X0 - MATERNAL CARE FOR EXCESS GROWTH, UNSP TRIMESTER, UNSP Status: Acute Current Visit: Yes (9) Vaginal delivery SNOMED Code(s): 501583590 ICD Code: O80 - ENCOUNTER FOR FULL-TERM UNCOMPLICATED DELIVERY Status: Acute Current Visit: No - Patient Summary/Data Consults: Consultations 07/02/20 00:27 Consult to Turpentine Distiller [CONS] Routine 07/03/20 08:37 Consult to Physical Therapy [PT Evaluation and Treatment] [CONS] Routine - Patient Instructions Diet: Usual Diet as Tolerated Activity: As Tolerated - Discharge Plan *PRESCRIPTION DRUG MONITORING PROGRAM REVIEWED*: No *COPY OF PRESCRIPTION DRUG MONITORING REPORT IN PATIENT PRABHU: No Home Medications: Home Meds Pnv No.95/Ferrous Fum/Folic AC [ Tablet] 1 each PO DAILY 02/05/16 [History] FLUoxetine [PROzac] 20 mg PO DAILY 11/23/19 [History] - Discharge Summary/Plan Comment DC Time >30 min.: No Discharge Summary/Plan Comment: check 6 weeks and prn. PT outpatient if needed - Patient Data Vitals - Most Recent: Last Vital Signs Temp 98.2 F 07/03/20 08:00 Pulse 90 07/03/20 08:00 Resp 16 07/03/20 08:00 BP 119/81 07/03/20 08:00 Pulse Ox 99 07/03/20 08:00 Weight - Most Recent: 230 lb Med Orders - Current: Current Medications Acetaminophen (Tylenol) 650 mg PO Q4H PRN PRN Reason: Pain (Mild 1-3) and fever Last Admin: 07/02/20 20:11 Dose: 650 mg Documented by: Benzocaine/Menthol (Dermoplast Pain Relief [place]) 0 gm TOP Q4H PRN PRN Reason: Perineal comfort measures Carboprost Tromethamine (Hemabate Ds) 250 mcg IM ASDIRECTED PRN PRN Reason: HEMORRHAGE Docusate Sodium (Colace) 100 mg PO BID PRN PRN Reason: Constipation Last Admin: 07/03/20 08:46 Dose: 100 mg Documented by: Fluoxetine HCl (Prozac) 20 mg PO DAILY MAIKEL Last Admin: 07/03/20 08:27 Dose: 20 mg Documented by: Tranexamic Acid 1,000 mg/ (Sodium Chloride) 110 mls @ 660 mls/hr IV ONETIME PRN PRN Reason: Bleeding Oxytocin/Sodium Chloride (Pitocin In Ns 30 Unit/500 Ml) 30 unit in 500 mls @ 2 mls/hr IV TITRATE MAIKEL; Protocol Lactated Ringer's (Ringers, Lactated) 1,000 mls @ 125 mls/hr IV ASDIRECTED MAIKEL Last Admin: 07/01/20 23:01 Dose: 125 mls/hr Documented by: Oxytocin/Sodium Chloride (Pitocin In Ns 30 Unit/500 Ml) 30 unit in 500 mls @ 2 mls/hr IV TITRATE MAIKEL; Protocol Last Titration: 07/02/20 03:10 Dose: 0 munits/min, 0 mls/hr Documented by: Ibuprofen (Motrin) 800 mg PO Q8H PRN PRN Reason: Mild Pain or Fever Last Admin: 07/03/20 03:35 Dose: 800 mg Documented by: Lidocaine HCl (Xylocaine-Mpf 1%) 30 ml INJECT ASDIRECTED PRN PRN Reason: Perineal Repair Loratadine (Claritin) 10 mg PO DAILY PRN PRN Reason: Allergies Last Admin: 07/03/20 08:26 Dose: 10 mg Documented by: Methylergonovine Maleate (Methergine) 0.2 mg IM ASDIRECTED PRN PRN Reason: Hemorrhage Misoprostol (Cytotec) 800 mcg RECTAL ASDIRECTED PRN PRN Reason: Hemorrhage Misoprostol (Cytotec) 50 mcg VAG Q4H PRN PRN Reason: cervical ripening Last Admin: 07/01/20 09:45 Dose: 50 mcg Documented by: Ondansetron HCl (Zofran) 4 mg IVPUSH Q4H PRN PRN Reason: Nausea/Vomiting Last Admin: 07/01/20 22:35 Dose: 4 mg Documented by: Oxycodone/Acetaminophen (Percocet 325-5 Mg) 1 tab PO Q4H PRN PRN Reason: Pain (severe 7-10) Last Admin: 07/03/20 08:28 Dose: 1 tab Documented by: Prenat Multivit/[place]/Iron/Folic Ac ( Plus Iron) 1 each PO DAILY MAIKEL Last Admin: 07/03/20 08:47 Dose: 1 each Documented by: Simethicone (Simethicone) 80 mg PO Q4H PRN PRN Reason: Gas Sodium Chloride (Saline Flush) 10 ml FLUSH ASDIRECTED PRN PRN Reason: Keep Vein Open Witch Kim (Medi-Pads) 1 each TOP Q4HR PRN PRN Reason: Perineal Comfort Measure Zolpidem Tartrate (Ambien) 5 mg PO BEDTIME PRN PRN Reason: Insomnia Discontinued Medications Epinephrine HCl (Adrenalin) Confirm Administered Dose 1 mg .ROUTE .STK-MED ONE Stop: 07/01/20 18:21 Last Admin: 07/01/20 19:39 Dose: Not Given Documented by: Epinephrine HCl (Adrenalin) Confirm Administered Dose 1 mg .ROUTE .STK-MED ONE Stop: 07/01/20 22:48 Last Admin: 07/02/20 03:33 Dose: Not Given Documented by: Fentanyl (Sublimaze) Confirm Administered Dose 100 mcg .ROUTE .STK-MED ONE Stop: 07/01/20 18:21 Last Admin: 07/01/20 19:39 Dose: Not Given Documented by: Fentanyl (Sublimaze) Confirm Administered Dose 100 mcg .ROUTE .STK-MED ONE Stop: 07/01/20 22:47 Last Admin: 07/02/20 03:32 Dose: Not Given Documented by: Lactated Ringer's (Ringers, Lactated) 1,000 mls @ 999 mls/hr IV BOLUS ONE Stop: 07/01/20 02:25 Last Admin: 07/02/20 03:32 Dose: Not Given Documented by: Penicillin G Potassium 5 (millunits/ Sodium Chloride) 100 mls @ 200 mls/hr IV ONETIME ONE Stop: 07/01/20 10:29 Last Admin: 07/01/20 09:59 Dose: 200 mls/hr Documented by: Penicillin G Potassium 2.5 (millunits/ Sodium Chloride) 100 mls @ 200 mls/hr IV Q4H MAIKEL Last Admin: 07/02/20 03:33 Dose: Not Given Documented by: Sufentanil Citrate (Sufenta) Confirm Administered Dose 50 mcg .ROUTE .STK-MED ONE Stop: 07/01/20 18:21 Last Admin: 07/01/20 19:40 Dose: Not Given Documented by: Sufentanil Citrate (Sufenta) Confirm Administered Dose 50 mcg .ROUTE .STK-MED ONE Stop: 07/01/20 22:48 Last Admin: 07/02/20 03:33 Dose: Not Given Documented by:
== END 2020-07-03 10:30 | disposition home or self-care (01) | DRG 560 ==
LOC: DL.OB 00:14 → OBSVTOIN 07-02 00:14
PROVIDERS: ADMIT Family Medicine; ATTEND Family Medicine
PROC: 10E0XZZ Delivery of Products of Conception, External Approach (ICD-10-PCS; principal; 2020-07-02)
PROC: 10907ZC Drainage of Amniotic Fluid, Therapeutic from Products of Conception, Via Natural or Artificial Opening (ICD-10-PCS; 2020-07-02)
PROC: 3E0R3BZ Introduction of Anesthetic Agent into Spinal Canal, Percutaneous Approach (ICD-10-PCS; 2020-07-02)
PROC: 00HU33Z Insertion of Infusion Device into Spinal Canal, Percutaneous Approach (ICD-10-PCS; 2020-07-02)
DX: O99.824 Streptococcus B carrier state complicating childbirth (principal); Z67.40 Type O blood, Rh positive; O36.63X0 Maternal care for excessive fetal growth, third trimester, not applicable or unspecified; O99.344 Other mental disorders complicating childbirth; F41.0 Panic disorder [episodic paroxysmal anxiety]; F32.9 Major depressive disorder, single episode, unspecified; Z11.59 Encounter for screening for other viral diseases; Z3A.39 39 weeks gestation of pregnancy; Z37.0 Single live birth; Z91.09 Other allergy status, other than to drugs and biological substances; Z28.82 Immunization not carried out because of caregiver refusal
CPT/HCPCS: 01967; 36415; 59025; 59409; 85027; A9270-GY; J0171; J2405; J2540; J2590; J3010; J7050; J7120; U0002

== ENCOUNTER 2023-04-30 08:30 | Emergency (ER) | payer BC ==
[2023-04-30 08:50] VITALS: PULSE 53
[2023-04-30 08:52] LABS: APPEARANCE,URINE SLIGHTLY CLOUDY (CLEAR); BILIRUBIN,URINE NEGATIVE (NEGATIVE); COLOR,URINE YELLOW (YELLOW); GLUCOSE,URINE NEGATIVE (NEGATIVE); KETONES,URINE NEGATIVE (NEGATIVE); LEUKOCYTE ESTERASE,URINE NEGATIVE (NEGATIVE); NITRITE,URINE NEGATIVE (NEGATIVE); OCCULT BLOOD,URINE NEGATIVE (NEGATIVE); PH,URINE 6.5 (5.0-9.0); PROTEIN,URINE NEGATIVE (NEGATIVE)
[2023-04-30] MEDS ORDERED: Ondansetron 4 MG Tab.DIS PO ONE (08:53)
[2023-04-30 09:18] LABS: AMPHETAMINES,URINE NEGATIVE (NEGATIVE); BARBITURATES,URINE NEGATIVE (NEGATIVE); BENZODIAZEPINE,URINE NEGATIVE (NEGATIVE); MDMA (ECSTASY), URINE NEGATIVE (NEGATIVE); METHADONE,URINE NEGATIVE (NEGATIVE); METHAMPHETAMINES,URINE NEGATIVE (NEGATIVE); OPIATES,URINE NEGATIVE (NEGATIVE); OXYCODONE,URINE NEGATIVE (NEGATIVE); PHENCYCLIDINE,URINE NEGATIVE (NEGATIVE); TCA,URINE NEGATIVE (NEGATIVE)
[2023-04-30 09:40] VITALS: BP 111/75
== END 2023-04-30 09:39 | disposition home or self-care (01) ==
LOC: DL.ED 08:30
DX: R11.0 Nausea (principal); Z91.048 Other nonmedicinal substance allergy status
CPT/HCPCS: 80305; 81003; 81025; 87804; 99283; A9270